=== PATIENT | female | born 1950 | race Caucasian/White ===

== ENCOUNTER 2020-05-07 12:21 | Outpatient (CLI) | payer MEDICARE, SELFPAY ==
--- NOTE | ~2020-05-07 | DEXA_ITS ---
BMD(1) Young-Adult(2) Age-Matched(3) Region (g/cm2) T-score Z-score WHO Classification L1 0.990 -1.2 1.7 Osteopenia L2 1.095 -0.9 1.9 Normal L3 1.092 -1.0 1.9 Normal L4 1.099 -0.9 1.9 Normal L1-L4 1.074 -1.0 1.9 Normal Trend: L1-L4 Change vs Change vs Measured Age BMD(1) Baseline Previous Date (years) (g/cm2) (%) (%) 05/07/2020 [age] 1.074 baseline - 1 - Statistically 68% of repeat scans fall within 1SD (+- 0.010 g/cm2 for AP Spine L1-L4) 2 - [place] (Combined NHANES (ages 20-30) / GET IT Mobile (ages 20-40)) AP Spine Reference Population (v112) 3 - Matched for Age, Weight (females 25-100 kg), Ethnic 11 - World Health Organization - Definition of Osteoporosis and Osteopenia for Women: Normal = T-score at or above -1.0 SD; Osteopenia = T-score between -1.0 and -2.5 SD; Osteoporosis = T-score at or below -2.5 SD; (WHO definitions only apply when a young healthy Women reference database is used to determine T-scores.) Printed: 05/07/2020 12:59:51 PM (13.60)76:3.00:50.00:12.0 0.00:10.44 0.60x1.05 25.0:%Fat=45.9% 0.00:0.00 0.00:0.00 Filename: [id number].dfx Scan Mode: Standard;OneScan 37.0 [employer] [id number] BMD(1) Young-Adult(2,7) Age-Matched(3) Region (g/cm2) T-score Z-score WHO Classification Neck Left 0.719 -2.3 0.1 Osteopenia Right 0.727 -2.2 0.2 Osteopenia Mean 0.723 -2.3 0.2 Osteopenia Difference 0.008 0.1 0.1 - Total Left 0.776 -1.8 0.4 Osteopenia Right 0.797 -1.7 0.6 Osteopenia Mean 0.786 -1.8 0.5 Osteopenia Difference 0.021 0.2 0.2 - Hip Lapoint Length Comparison (mm) (Right = 101.9 mm) (Mean = 101.1 mm) (Left = 104.7 mm) Trend: Total Mean Change vs Change vs Measured Age BMD(1) Baseline Previous Date (years) (g/cm2) (%) (%) 05/07/2020 69.9 0.786 baseline - 1 - Statistically 68% of repeat scans fall within 1SD (+- 0.010 g/cm2 for DualFemur Total) 2 - [place] (Combined NHANES (ages 20-30) / [employer] Mobile (ages 20-40)) Femur Reference Population (v112) 3 - Matched for Age, Weight (females 25-100 kg), Ethnic 7 - DualFemur Total T-score difference is 0.2. Asymmetry is None. 11 - World Health Organization - Definition of Osteoporosis and Osteopenia for Women: Normal = T-score at or above -1.0 SD; Osteopenia = T-score between -1.0 and -2.5 SD; Osteoporosis = T-score at or below -2.5 SD; (WHO definitions only apply when a young healthy Women reference database is used to determine T-scores.) Printed: 05/07/2020 12:59:52 PM (13.60); Filename: [id number].dfx; Right Femur; 20.5:%Fat=39.0%; Neck Angle (deg)= 63; Scan Mode: Standard 37.0 uGy; Left Femur; 20.0:%Fat=38.8%; Neck Angle (deg)= 68; Measured thickness not within mode range; Scan Mode: Thin 9.0 uGy [facility] [id number] Dear Erwin Beltran, Your patient Polly Merchant completed a BMD test on 05/07/2020 using the [facility] DXA System (analysis version: 13.60) manufactured by [employer]. The following summarizes the results of our evaluation. PATIENT BIOGRAPHICAL: Name: Polly Merchant Date: 1950 Height: 61.0 in. Gender: Female
== END 2020-05-07 12:22 | disposition home or self-care (01) ==
LOC: CHSIMG 12:24
PROVIDERS: PCP Family Medicine; Visit Provider Family Medicine
DX: Z78.0 Asymptomatic menopausal state (principal)
CPT/HCPCS: 77080

== ENCOUNTER 2021-01-24 12:44 | Outpatient (CLI) | payer MEDICARE, SELFPAY ==
--- NOTE | ~2021-01-24 | MM_ITS ---
EXAMINATION: MM screening [facility] HISTORY: Screening TECHNIQUE: Craniocaudal and mediolateral oblique 3-D tomosynthesis images were obtained and synthetic 2-D images were generated. CAD analysis was submitted and interpreted. COMPARISON: Comparison to multiple prior studies sequentially, with oldest reviewed study dated 07/11. BREAST PARENCHYMAL COMPOSITION: There are scattered areas of fibroglandular density. FINDINGS: There is no evidence of suspicious mass, calcification, or architectural distortion to sugg est malignancy in either breast. There has been no suspicious interval change. IMPRESSION: 1. No mammographic evidence of malignancy. 2. Recommend routine screening mammography in one year. BI-RADS Category 1: Negative Reviewed, dictated and finalized at location A.
== END 2021-01-24 12:45 | disposition home or self-care (01) ==
LOC: CHSIMG 12:45
PROVIDERS: PCP Family Medicine; Visit Provider Family Medicine
DX: Z12.31 Encounter for screening mammogram for malignant neoplasm of breast (principal)
CPT/HCPCS: 77063; 77067

== ENCOUNTER 2021-02-28 14:36 | Outpatient (CLI) | payer MEDICARE, SELFPAY ==
--- NOTE | ~2021-02-28 | XR_ITS ---
XR foot RT min 3V DATE: 02/28/2021 15:10 INDICATION: Generalized foot pain for 2 years. Broke foot 20 years ago. TECHNIQUE: 3 views COMPARISON: None FINDINGS: There is mild plantar calcaneal enthesopathy and mild calcification of the distal Achilles tendon. No recent fracture or dislocation, periosteal reaction or bone destruction. IMPRESSION: Mild calcaneal enthesopathy, mild calcification of the distal Achilles tendon Reviewed, dictated and finalized at location A. IMPRESSION: Mild calcaneal enthesopathy, mild calcification of the distal Achil les tendon
== END 2021-02-28 14:37 | disposition home or self-care (01) ==
LOC: CHSIMG 14:39
PROVIDERS: PCP Family Medicine; Visit Provider Podiatrist
DX: M77.41 Metatarsalgia, right foot (principal)
CPT/HCPCS: 73630

== ENCOUNTER 2021-06-25 10:10 | Outpatient (CLI) | payer MEDICARE, SELFPAY ==
--- NOTE | ~2021-06-25 | MR_ITS ---
EXAMINATION: MR knee LT wo con DATE: 06/25/2021 15:36 INDICATION: Left knee pain. TECHNIQUE: Magnetic resonance imaging (MRI) of the left knee was performed without intravenous contra st. Sequences included axial PD-weighted FS FSE, coronal PD-weighted FSE and PD-weighted FS FSE, sagi ttal PD-weighted FSE, and sagittal T2-weighted FS FSE. COMPARISON: None. FINDINGS: Medial compartment: Medial meniscus is normal. There is shallow partial-thickness cartilage loss of femoral condyle invol ving the central articular surface. There is cartilage surface irregularity of tibial condyle. Lateral compartment: There is a complex tear involving the body and anterior horn of lateral meniscus. There is extensive shallow partial-thickness cartilage loss of femoral condyle and tibial condyle. There is mild subchon dral edema-like marrow signal intensity of femoral condyle at the central articular surface. Patellofemoral compartment: There is shallow partial-thickness cartilage loss of patellar median ridge with mild subchondral debby a-like marrow signal intensity. Trochlear cartilage is normal. Ligaments and tendons: The anterior and posterior cruciate ligaments are normal. Medial collateral ligament is intact. There are changes of prior sprain of fibular collateral ligament characterized by thickening and increased signal intensity proximally. There is mild patellar tendinopathy. Fluid: There is a moderate-sized knee joint effusion. There is trace fluid in a May's cyst. There is mild pes anserinus bursitis. There is mild prepatellar and superficial infrapatellar bursitis. IMPRESSION: 1. Moderate tricompartmental chondrosis. 2. Tear of lateral meniscus. 3. Moderate-sized knee joint effusion. Reviewed, dictated and finalized at location A.
== END 2021-06-25 10:11 | disposition home or self-care (01) ==
LOC: CHSIMG 10:11
PROVIDERS: PCP Family Medicine; Visit Provider Family Medicine
DX: M25.562 Pain in left knee (principal)
CPT/HCPCS: 73721

== ENCOUNTER 2021-06-27 15:43 | Outpatient (CLI) | payer MEDICARE, SELFPAY ==
--- NOTE | ~2021-06-27 | XR_ITS ---
EXAMINATION: XR thoracic spine 3V DATE: 06/27/2021 16:17 INDICATION: Right posterior thoracic pain. TECHNIQUE: 3 views of thoracic spine were obtained. COMPARISON: Thoracic spine radiographs 06/09/2019 FINDINGS: There is 19 degrees levoscoliosis of thoracolumbar spine. There is kyphosis of thoracic spi ne. There is mild chronic anterior wedging of T7, T8, and T9 vertebral bodies. There is severely decr eased disc height from T4-T5 through T9-T10. There is interbody fusion at T5-T6 and T6-T7. IMPRESSION: 1. Severe thoracic spondylosis, mildly worsened from 06/09/2019. 2. Thoracic kyphosis and thoracolumbar levoscoliosis. Reviewed, dictated and finalized at location A.
--- NOTE | ~2021-06-27 | XR_ITS ---
EXAMINATION: XR chest 2V 06/27/2021 16:17 INDICATION: Pleuritic chest pain PROCEDURE: 2 view chest COMPARISON: Comparison to multiple prior studies sequentially, with oldest reviewed study dated 10/25. FINDINGS: The lungs are clear. The cardiomediastinal silhouette is within normal limits. There are no pleural effusions. There is no pneumothorax suspected. There is scoliosis. No acute osseous abno rmality. IMPRESSION: 1: NO ACUTE CARDIOPULMONARY DISEASE. Reviewed, dictated and finalized at location B.
== END 2021-06-27 15:44 | disposition home or self-care (01) ==
LOC: CHSIMG 15:52
PROVIDERS: PCP Family Medicine; Visit Provider Family Medicine
DX: R07.81 Pleurodynia (principal)
CPT/HCPCS: 71046; 72072

== ENCOUNTER 2022-01-30 08:32 | Outpatient (CLI) | payer MEDICARE, SELFPAY ==
--- NOTE | ~2022-01-30 | MM_ITS ---
EXAMINATION: MM screening [facility] BI w kojo HISTORY: Screening mammogram TECHNIQUE: Craniocaudal and mediolateral oblique 3-D tomosynthesis images were obtained and synthetic 2-D images were generated. CAD analysis was submitted and interpreted. COMPARISON: 01/24/2021, 08/14/2019, 08/12/2018 bilateral screening mammogram examinations BREAST PARENCHYMAL COMPOSITION: The breasts are almost entirely fatty. FINDINGS: There is no evidence of suspicious mass, calcification, or architectural distortion to sugg est malignancy in either breast. There has been no suspicious interval change. IMPRESSION: 1. No mammographic evidence of malignancy. 2. Recommend routine screening mammography in one year. BI-RADS Category 1: Negative Reviewed, dictated and finalized at location A.
== END 2022-01-30 08:33 | disposition home or self-care (01) ==
LOC: CHSIMG 08:38
PROVIDERS: PCP Family Medicine; Visit Provider Family Medicine
DX: Z12.31 Encounter for screening mammogram for malignant neoplasm of breast (principal)
CPT/HCPCS: 77063; 77067

== ENCOUNTER 2022-08-17 10:48 | Outpatient (CLI) | payer MEDICARE, SELFPAY ==
--- NOTE | ~2022-08-17 | XR_ITS ---
XR chest 2V 08/17/2022 11:05 Indication: Bronchitis for 2 weeks Procedure: PA and lateral views of the chest Comparison: 06/27/2021 Findings: Heart size is normal. There is left basilar atelectasis. No focal pneumonia, edema, pleural effusion or pneumothorax. No acute osseous abnormality. Impression: 1: Left basilar atelectasis. Reviewed, dictated and finalized at location A. STRATION REP Impression: 1: Left basilar atelectasis.
== END 2022-08-17 10:49 | disposition home or self-care (01) ==
LOC: CHSIMG 10:50
PROVIDERS: PCP Family Medicine; Visit Provider Family Medicine
DX: J20.9 Acute bronchitis, unspecified (principal)
CPT/HCPCS: 71046

== ENCOUNTER 2022-10-26 10:23 | Outpatient (CLI) | payer MEDICARE, SELFPAY ==
--- NOTE | ~2022-10-26 | DEXA_ITS ---
Bone Density Report Name: NNAMDI DUMONT Age: 72 Sex: Female Ethnicity: White Date of : 1950 Indication: postmenopausal; screening for osteoporosis; height loss; hysterectomy; Referring Provider: Devin*Erwin Marlow Study: Bone densitometry was performed. Exam Date: October 26, 2022 Accession number: [id number] Bone Density: Region BMD T-score Z-score Classification AP Spine(L1-L4) 0.867 -1.6 0.6 Osteopenia Femoral Neck (Left) 0.584 -2.4 -0.5 Osteopenia Total Hip (Left) 0.677 -2.2 -0.6 Osteopenia Femoral Neck (Right) 0.579 -2.4 -0.6 Osteopenia Total Hip (Right) 0.706 -1.9 -0.4 Osteopenia Femoral Neck Mean 0.581 -2.4 -0.5 Osteopenia Total Hip Mean 0.692 -2.1 -0.5 Osteopenia World Health Organization criteria for BMD impression classify patients as: Normal (T-score at or above -1.0), Osteopenia (T-score between -1.0 and -2.5), or Osteoporosis (T-score at or below -2.5). 10-year Fracture Risk(1): Major Osteoporotic Fracture 13% Hip Fracture 3.2% Reported Risk Factors: [place] (), Neck BMD=0.579, BMI=32.1 (1) FRAX(R) Version 3.08. Fracture probability calculated for an untreated patient. Fracture probability may be lower if the patient has received treatment. Clinical Information Provided by Patient: Has used the following medications: Vitamin D Has the following medical conditions: Hysterectomy Patient maximum height was 62 Menopause Age: 46 Drinks caffeinated beverages Onset of menses at age 14 Number of children 3 Impression: The patient has low bone mass, based on the Left Femoral Neck T-score. Discussion: BONE DENSITY IS LOW AT ONE OR MORE SKELETAL SITES. This patient's lowest T-score is low at one or more skeletal sites. It meets the World Health Organization's (WHO) criteria for ?low bone mass? (T-score between -1.0 and -2.5). The patient's 10-year risk of fracture as calculated by FRAX is less than the threshold where pharmacological therapy is recommended by the National Osteoporosis Foundation (NOF). However, all treatment decisions require clinical judgment and consideration of individual patient factors, including patient preferences, comorbidities, previous drug use, risk factors not captured in the FRAX model (e.g., frailty, falls, vitamin D deficiency, increased bone turnover, interval significant decline in bone density) and possible under or overestimation of fracture risk by FRAX. The patient should follow a healthful lifestyle (good nutrition with adequate calcium and vitamin D, and appropriate weight-bearing exercise). Follow-Up: Consider repeating this study in 2 to 3 years to reassess this patient's status, or sooner if there is some new clinical indication. Reported by: Dr. Brandon Padilla on 10/26/2022 10:47:00 AM.
== END 2022-10-26 10:24 | disposition home or self-care (01) ==
LOC: CHSIMG 10:25
PROVIDERS: PCP Family Medicine; Visit Provider Family Medicine
DX: Z78.0 Asymptomatic menopausal state (principal); M85.89 Other specified disorders of bone density and structure, multiple sites
CPT/HCPCS: 77080

== ENCOUNTER 2023-01-06 08:41 | Emergency (ER) | payer MEDICARE, SELFPAY ==
[2023-01-06] VITALS (16 sets, daily range): BP systolic 158–181; BP diastolic 68–90; PULSE 68–83; RESP 13–22; TEMP 36.8–36.9; O2SAT 93–97
--- NOTE | ~2023-01-06 | CT_ITS ---
EXAMINATION: CTA brain carotid DATE: 01/06/2023 11:02 INDICATION: Left arm numbness, headache TECHNIQUE: Computed tomographic angiography (CTA) of the head was performed without and with 100 mL O mnipaque-350 intravenous contrast. CTA of the neck was performed with intravenous contrast. The dose- length product was 1490.09 mGy-cm. Maximum intensity projection and volume rendered 3D-reconstruction s were created by the technologist on a separate workstation. Automated exposure control and iterativ e reconstruction technique were employed. COMPARISON: 02/06/2019 FINDINGS: HEAD CTA: There is no acute intraparenchymal hemorrhage. No evidence of mass lesion. No evidence of a cute infarction. There is mild periventricular and subcortical hypodensity probably related to small vessel ischemic disease. There is mild prominence of the sulci and ventricles related to cerebral atr ophy. Intracranial calcified cerebral atherosclerosis is noted. There are no extra-axial collections. There is no mass effect or midline shift. The orbits and soft tissues are unremarkable. The visualiz ed sinuses and mastoid air cells are well aerated. There is no significant stenosis of the basilar artery or posterior cerebral arteries. There is no si gnificant stenosis of the intracranial internal carotid arteries or the anterior or middle cerebral a rteries. The anterior communicating artery and posterior communicating arteries are normal. There is no aneurysm. NECK CTA: The thyroid gland is unremarkable. The submandibular and parotid glands are symmetric. Ther e is no lymphadenopathy. There are no masses identified. The airway is unremarkable. There is mild ce rvical spondylosis.. The superior mediastinum is unremarkable. There is 0% stenosis of the proximal right internal carotid artery relative to normal distal artery l umen diameter (NASCET criteria). There is 0% stenosis of the proximal left internal carotid artery re lative to normal distal artery lumen diameter. IMPRESSION: 1. No acute intracranial abnormality. Normal head CTA. 2. 0% stenosis of the proximal right internal carotid artery relative to normal distal artery lumen d iameter (NASCET criteria). 3. 0% stenosis of the proximal left internal carotid artery relative to normal distal artery lumen di ameter. Reviewed, dictated and finalized at location A. IMPRESSION: 1. No acute intracranial abnormality. Normal head CTA. 2. 0% stenosis of the proximal right internal carotid artery relative to normal distal artery lumen diameter (NASCET criteria). 3. 0% stenosis of the proximal left internal carotid artery relative to normal distal artery lumen diameter.
--- NOTE | ~2023-01-06 | XR_ITS ---
EXAMINATION: XR chest 2V DATE: 01/06/2023 11:03 INDICATION: Cough TECHNIQUE: PA and lateral views of the chest are obtained. COMPARISON: 08/17/2022 FINDINGS: The lungs are free of acute opacities. No pleural effusion or pneumothorax. The cardiomedia stinal silhouette is normal. There is moderate thoracic spondylosis. IMPRESSION: 1. No acute cardiopulmonary abnormality. Reviewed, dictated and finalized at location A.
--- NOTE | 2023-01-06 09:07 | ECG_ITS ---
Measurements Intervals [place] Rate: 69 P: 48 NC: 174 QRS: 30 QRSD: 87 T: 14 QT: 377 QTc: 405 Interpretive Statements SINUS RHYTHM EARLY PRECORDIAL R/S TRANSITION NONSPECIFIC T-WAVE ABNORMALITY- ANTERIOR LEADS BORDERLINE ECG NO PREVIOUS ECG AVAILABLE FOR COMPARISON Electronically Signed On 01-08-2023 6:48:13 CDT by Anil Morgan D.O.
[2023-01-06 09:41] LABS: Basophils Absolute Auto 0.04 K/mm3 (0.00-0.10); Basophils Percent Auto 0.6 % (0.0-1.0); Eosinophils Absolute Auto 0.13 K/mm3 (0.02-0.50); Eosinophils Percent Auto 1.8 % (1.0-6.0); Hematocrit 40.2 % (35.0-42.0); Hemoglobin 13.1 g/dL (11.7-13.8); Immature Granulocyte Absolute 0.01 K/mm3 (0.00-0.00); Immature Granulocyte Percent A 0.1 % (0.0-0.0); Lymphocytes Absolute Auto 1.89 K/mm3 (1.10-4.50); Mean Corpuscular HGB Conc 32.6 g/dL (32.0-36.0); Mean Corpuscular Hemoglobin 29.3 pg (27.0-31.0); Mean Corpuscular Volume 89.9 fL (78.0-102.0); Mean Platelet Volume 10.4 fl (9.2-11.8); Monocytes Absolute Auto 0.53 K/mm3 (0.10-0.90); Monocytes Percent Auto 7.3 % (2.0-11.0); Neutrophils Absolute Auto 4.7 K/mm3 (1.7-7.2); Neutrophils Percent Auto 64.2 % (50.0-70.0); Platelet Count Result 244 K/mm3 (150-420); Red Blood Count 4.47 M/mm3 (4.20-5.40); Red Cell Distribution Width 12.6 % (11.6-14.4); White Blood Count 7.3 K/mm3 (4.8-10.8)
--- NOTE | 2023-01-06 09:41 | ED.GENADULT ---
HPI - General Adult General Chief complaint: Extremity Injury, Upper Stated complaint: altered Time Seen by Provider: 01/06/23 09:07 History of Present Illness HPI narrative: 72yo woman in a state of good health presents withconcerns for a painful numbness, pins and needles sensation, extending from the left elbow downward, onset 2 nights ago, that lasted about a day and then resolved. No other numbness such as in the face or leg. No weakness. No difficulty with balance, speech, or vision. She did notice her blood pressure is now running higher. No other pains in the body. Daughter is worried about a heart attack. Pt denies shortness of breath, nausea, sweatiness. She does feel noticeably more tired than usual. No cough, fever, congestion, diarrhea, joint swelling, rash, or dysuria. Related Data Home Medications Medication Instructions Recorded Confirmed atorvastatin 10 mg tablet 10 mg PO DAILY 11/19/19 01/06/23 omeprazole 20 mg capsule,delayed 20 mg PO DAILY 11/19/19 01/06/23 release Allergies Allergy/AdvReac Type Severity Reaction Status Date / Time fentanyl Allergy Intermediate hot flashes Verified 01/06/23 09:04 Penicillins Allergy Intermediate Rash Verified 01/06/23 09:04 Review of Systems Review of Systems: All systems reviewed & are unremarkable except as noted in HPI and below Constitutional: Constitutional: Reports fatigue Cardiovascular: Cardiovascular: Denies chest pain Respiratory: Respiratory: Denies dyspnea Gastrointestinal: Gastrointestinal: Denies nausea PMFSH Social History Social History Smoking status: Never smoker Alcohol intake: never Exam Const: General: healthy appearing and no acute distress Nutritional Appearance: well nourished Orientation/consciousness: patient oriented x3 HENMT: Head: normal to inspection Mouth: Yes moist mucous membranes Eyes: Conjunctivae: conjunctivae normal EOM: EOMs intact bilaterally Neck: Other: supple Resp: Effort & Inspection: normal respiratory effort Cardio: Rate: regular rate Rhythm: regular rhythm Skin: General skin exam: normal color, no jaundice and no pallor Neuro: General: patient oriented x3, moves all extremities, no focal motor deficits and CN's II-XI intact bilaterally Other: intact pinprick sensation across both arms and forearms Extrem: General: normal to inspection Course Vital Signs Vital signs: Vital Signs Temperature 36.9 C 01/06/23 08:43 Pulse Rate 73 01/06/23 08:43 Respiratory Rate 18 01/06/23 08:43 Blood Pressure 168/74 H 01/06/23 08:43 Pulse Oximetry 97 01/06/23 08:43 Oxygen Delivery Room Air 01/06/23 08:43 Temperature 36.9 C 01/06/23 08:48 Pulse Rate 68 01/06/23 10:05 Respiratory Rate 16 01/06/23 10:05 Blood Pressure 181/79 H 01/06/23 10:03 Pulse Oximetry 95 01/06/23 10:05 Oxygen Delivery Room Air 01/06/23 08:43 Medical Decision Making MDM Narrative Medical decision making narrative: Temporary unilateral numbness, not in any one peripheral nerve distribution DDx consider TIA, pressure neuropathy, radiculopathy (but no neck pain), coronary syndrome (but no chest symptoms), and muscle strain. Needs CT Head, CT angio head and neck, CXR, and cardiac labs. Differential Diagnosis Differential Diagnosis: above Medical Records Medical records reviewed: Yes I reviewed the external patient's medical records. Vital Signs Vital Signs: Vital Signs Temperature 36.9 C 01/06/23 08:43 Pulse Rate 73 01/06/23 08:43 Respiratory Rate 18 01/06/23 08:43 Blood Pressure 168/74 H 01/06/23 08:43 Pulse Oximetry 97 01/06/23 08:43 Oxygen Delivery Room Air 01/06/23 08:43 Temperature 36.9 C 01/06/23 08:48 Pulse Rate 68 01/06/23 10:05 Respiratory Rate 16 01/06/23 10:05 Blood Pressure 181/79 H 01/06/23 10:03 Pulse Oximetry 95 01/06/23 10:05 Oxygen Delivery
[2023-01-06 09:58] LABS: Alanine Aminotransferase 19 U/L (14-59); Albumin Level 3.6 g/dL (3.4-5.0); Alkaline Phosphatase 122 U/L (46-116); Anion Gap 9 mmol/L (8-16); Aspartate Amino Transferase 23 U/L (15-37); Bilirubin,Total 0.6 mg/dL (0.00-1.00); Blood Urea Nitrogen 20 mg/dL (7-18); Carbon Dioxide 30 mmol/L (21-32); Chloride 104 mmol/L (98-108); Estimated CRCL calculation 57 ml/min; Estimated Glomerular Filt Rate > 60; Glucose 103 mg/dL (70-99); Osmolality Calculated 298 mOsm/kg (285-295); Potassium 3.8 mmol/L (3.5-5.1); Sodium 143 mmol/L (136-145); Total Protein 7.8 g/dL (6.4-8.2); Troponin I 14.2 ng/L (0.00-60.4)
[2023-01-06 10:11] LABS: Appearance Urine Clear (Clear); Bilirubin Urine Negative (Negative); Blood Urine Negative (Negative); Color Urine Light Yellow (Yellow); Glucose Urine UA Negative (Negative); Ketones Urine Negative (Negative); Leukocyte Esterase Ur Negative LEU/UL (Negative); Nitrate Urine Negative (Negative); Protein Urine Negative (Negative); Urobilinogen Urine 0.2 mg/dL (0.2-1.0)
[2023-01-06 10:14] LABS: Add Urine Microscopic? NO
[2023-01-06] MEDS: SODIUM CHLORIDE 0.9% IV 1,000 ML 999 ML IV CONT (10:16)
[2023-01-06] MEDS: KETOROLAC 30 MG/ML VIAL (*BKC) IV PUSH (10:17)
[2023-01-06] MEDS: ACETAMINOPHEN 500 MG TABLET 1000 MG PO (10:18)
[2023-01-06] MEDS: methocarbamoL 500 MG TABLET 1000 MG PO (10:58)
== END 2023-01-06 11:59 | disposition home or self-care (01) ==
PROVIDERS: Emergency Provider Emergency Medicine; PCP Family Medicine
DX: M79.602 Pain in left arm (principal)
CPT/HCPCS: 36415; 70496; 70498; 71046; 80053; 81003; 84484; 85025; 93005; 96361; 96374; 99284; A9270; J1885; J7030; Q9967

== ENCOUNTER 2023-02-01 11:35 | Outpatient (CLI) | payer MEDICARE, SELFPAY ==
--- NOTE | ~2023-02-01 | MM_ITS ---
EXAMINATION: MM screening [facility] BI w kojo HISTORY: Screening mammogram TECHNIQUE: Craniocaudal and mediolateral oblique 3-D tomosynthesis images were obtained and synthetic 2-D images were generated. CAD analysis was submitted and interpreted. COMPARISON: 01/30/2022, 01/24/2021, 08/14/2019 BREAST PARENCHYMAL COMPOSITION: There are scattered areas of fibroglandular density. FINDINGS: No suspicious mass, calcification, or architectural distortion are identified in either william ast to suggest malignancy. There has been no suspicious interval change. IMPRESSION: 1. No mammographic evidence of malignancy. 2. Recommend routine screening mammography in one year. BI-RADS Category 1: Negative Reviewed, dictated and finalized at location A.
== END 2023-02-01 11:36 | disposition home or self-care (01) ==
LOC: CHSIMG 11:36
PROVIDERS: PCP Family Medicine; Visit Provider Family Medicine
DX: Z12.31 Encounter for screening mammogram for malignant neoplasm of breast (principal)
CPT/HCPCS: 77063; 77067

== ENCOUNTER 2023-07-02 05:07 | Emergency (ER) | payer MEDICARE, SELFPAY ==
[2023-07-02 05:10] VITALS: BP 174/82; PULSE 84; RESP 16; TEMP 36.7; O2SAT 98
--- NOTE | 2023-07-02 05:30 | ED.GENADULT ---
HPI - General Adult General Chief complaint: Unspecified Stated complaint: Left Arm Numbness Time Seen by Provider: 07/02/23 05:15 History of Present Illness HPI narrative: Renea presented to the ED with some numbness in her left arm. It started after doing some yard work yesterday but resolved. However, it woke her up from sleep today but resolved by the time she came to the ED. It happened back in December when she had a CVA workup done that was unremarkable at that time. She describes it as numbness to the outside of her left arm and before coming to the ED she had trouble extending her left wrist. It did not hurt per say but just felt numb. She did work in the yard but she regularly does this. No falls or trauma. She denies any slurred speech, weakness, and facial droop as well as chest pain, dyspnea, nausea and lightehadedness. Related Data Home Medications Medication Instructions Recorded Confirmed atorvastatin 10 mg tablet 10 mg PO DAILY 11/19/19 07/02/23 omeprazole 20 mg capsule,delayed 20 mg PO DAILY 11/19/19 07/02/23 release Allergies Allergy/AdvReac Type Severity Reaction Status Date / Time fentanyl Allergy Intermediate hot flashes Verified 07/02/23 05:10 Penicillins Allergy Intermediate Rash Verified 07/02/23 05:10 Review of Systems Review of Systems: All systems reviewed & are unremarkable except as noted in HPI and below [facility] Social History Social History Smoking status: Never smoker Alcohol intake: never Exam Const: General: cooperative, healthy appearing, comfortable and no acute distress Nutritional Appearance: average body habitus HENMT: Head: normal to inspection, normocephalic and atraumatic Eyes: General: appearance normal, both eyes and all related structures Alignment and Position: alignment normal Periorbital: periorbital findings normal Neck: Neck: normal visual inspection and full ROM Other: Was mildly TTP just lateral to the midline of the cervical spine. Did have some pain with Spurling maneuver but it did not travel all the way down the arm. Chest: Chest palpation & inspection: normal inspection of the chest Resp: Effort & Inspection: normal respiratory effort and able to speak in complete sentences Cardio: Rate: regular rate Skin: General skin exam: normal color and no rashes or lesions noted Neuro: General: oriented to person, oriented to place, oriented to time, gait normal, moves all extremities and CN's II-XI intact bilaterally Cognition (Neuro): normal cognition Speech: normal speech Gait exam (Neuro): Normal gait present Motor exam (neuro): 5/5 motor strength present throughout and No tremor noted Other: Numbness on the posterior medial side of the left hand, numbness on the medial posterior forearm and lateral left arm. 5/5 strenth throughout the upper extremities. Course Vital Signs Vital signs: Vital Signs Temperature 98.1 F 07/02/23 05:10 Pulse Rate 84 07/02/23 05:10 Respiratory Rate 16 07/02/23 05:10 Blood Pressure 174/82 H 07/02/23 05:10 Pulse Oximetry 98 07/02/23 05:10 Oxygen Delivery Room Air 07/02/23 05:10 Temperature 98.1 F 07/02/23 05:10 Pulse Rate 84 07/02/23 05:10 Respiratory Rate 16 07/02/23 05:10 Blood Pressure 174/82 H 07/02/23 05:10 Pulse Oximetry 98 07/02/23 05:10 Oxygen Delivery Room Air 07/02/23 05:10 Medical Decision Making Differential Diagnosis Differential Diagnosis: -Radial nerve in jury vs cervical radiculopathy vs musculoskeletal strain vs TIA vs other. As numbness follows the radial nerve distribution and she reports wrist extension weakness earlier this is most likely. With minor neck pain and radiating numbness cervical radiculopathy could also be the case. TIA/CVA is unlikely as there is no weakness, facial droop, slurred speech and she had a normal head/neck CTA months ago. Vital Signs Vital Signs: Vital Signs
[2023-07-02 05:33] VITALS: BP 165/79
[2023-07-02 05:43] VITALS: BP 165/79; PULSE 76; RESP 16; TEMP 36.7; O2SAT 96
== END 2023-07-02 05:44 | disposition home or self-care (01) ==
PROVIDERS: Emergency Provider Family Medicine; PCP Family Medicine
DX: S54.22XA Injury of radial nerve at forearm level, left arm, initial encounter (principal); Z86.73 Personal history of transient ischemic attack (TIA), and cerebral infarction without residual deficits; X58.XXXA Exposure to other specified factors, initial encounter
CPT/HCPCS: 99283

== ENCOUNTER 2023-08-30 10:31 | Outpatient (CLI) | payer MEDICARE, SELFPAY ==
--- NOTE | ~2023-08-30 | XR_ITS ---
EXAM: XR thoracic spine 3V DATE: 08/30/2023 11:39 HISTORY: mid back pain X 2 WEEKS AFTER LIFTING SOMETHING HEAVY . COMPARISON: 06/27/2021. FINDINGS: Exaggerated thoracic kyphosis. Multilevel mild anterior wedge deformities in the thoracic spine, unchanged. Moderate thoracic scoliosis. Multilevel moderate-severe degenerative disc changes. No traumatic malalignment or fracture. Senescent changes in the lungs. IMPRESSION: No acute fracture or traumatic malalignment detected in the thoracic spine. Multilevel degenerative disc disease. Thoracic kyphosis and scoliosis. Reviewed, dictated and finalized at location K. NCIAL PLANNING ANALYST
== END 2023-08-30 10:32 | disposition home or self-care (01) ==
PROVIDERS: PCP Family Medicine; Visit Provider Family Medicine
DX: M54.9 Dorsalgia, unspecified (principal); M51.34 Other intervertebral disc degeneration, thoracic region
CPT/HCPCS: 72072

== ENCOUNTER 2023-09-05 12:02 | Outpatient (CLI) | payer MEDICARE, SELFPAY ==
--- NOTE | ~2023-09-05 | CT_ITS ---
EXAMINATION:CT diagnostic chest wo con DATE: 09/05/2023 12:47 INDICATION: Right chest pain. TECHNIQUE: Computed tomography (CT) of the chest was performed without intravenous contrast. Automate d exposure control and iterative reconstruction technique were employed. The dose-length product (DLP ) was 213.14 mGy-cm. COMPARISON: CT abdomen and pelvis 06/06/2019 FINDINGS: There is mild scarring at the lung apices. There is mild scarring in paraspinal right lower lobe. Calcified right lung nodules are consistent with old granulomatous disease. No pleural effusio n. The heart size is normal. There are coronary artery calcifications. No pericardial effusion. There is a small sliding hiatal hernia. There is a 5 mm stone in right kidney. There is severe thoracic sp ondylosis. IMPRESSION: 1. Small sliding hiatal hernia. Reviewed, dictated and finalized at location E. T ASSOCIATE
[2023-09-05 12:25] LABS: Basophils Absolute Auto 0.05 K/mm3 (0.00-0.10); Basophils Percent Auto 0.5 % (0.0-1.0); Eosinophils Percent Auto 0.9 % (1.0-6.0); Hematocrit 44.1 % (35.0-42.0); Hemoglobin 14.7 g/dL (11.7-13.8); Immature Granulocyte Absolute 0.04 K/mm3 (0.00-0.00); Immature Granulocyte Percent A 0.4 % (0.0-0.0); Lymphocytes Absolute Auto 1.83 K/mm3 (1.10-4.50); Lymphocytes Percent Auto 17.1 % (18.0-42.0); Mean Corpuscular HGB Conc 33.3 g/dL (32.0-36.0); Mean Corpuscular Hemoglobin 29.8 pg (27.0-31.0); Mean Corpuscular Volume 89.5 fL (78.0-102.0); Mean Platelet Volume 10.4 fl (9.2-11.8); Monocytes Absolute Auto 0.53 K/mm3 (0.10-0.90); Monocytes Percent Auto 4.9 % (2.0-11.0); Neutrophils Absolute Auto 8.2 K/mm3 (1.7-7.2); Neutrophils Percent Auto 76.2 % (50.0-70.0); Platelet Count Result 283 K/mm3 (150-420); Red Blood Count 4.93 M/mm3 (4.20-5.40); Red Cell Distribution Width 12.7 % (11.6-14.4); White Blood Count 10.7 K/mm3 (4.8-10.8)
[2023-09-05 13:05] LABS: Alanine Aminotransferase 37 U/L (14-59); Albumin Level 4.1 g/dL (3.4-5.0); Alkaline Phosphatase 140 U/L (46-116); Anion Gap 8 mmol/L (8-16); Aspartate Amino Transferase 19 U/L (15-37); Bilirubin,Total 0.7 mg/dL (0.00-1.00); Blood Urea Nitrogen 15 mg/dL (7-18); Calcium 9.7 mg/dL (8.5-10.1); Carbon Dioxide 31 mmol/L (21-32); Chloride 100 mmol/L (98-108); Estimated Glomerular Filt Rate > 60; Glucose 96 mg/dL (70-99); Osmolality Calculated 288 mOsm/kg (285-295); Potassium 3.8 mmol/L (3.5-5.1); Sodium 139 mmol/L (136-145); Total Protein 7.7 g/dL (6.4-8.2)
== END 2023-09-05 12:03 | disposition home or self-care (01) ==
PROVIDERS: PCP Family Medicine; Visit Provider Family Medicine
DX: K44.9 Diaphragmatic hernia without obstruction or gangrene (principal)
CPT/HCPCS: 36415; 71250; 80053; 85025

== ENCOUNTER 2023-09-06 08:01 | Outpatient (CLI) | payer MEDICARE, SELFPAY ==
--- NOTE | ~2023-09-06 | XR_ITS ---
EXAMINATION: XR ribs BI 3V w CXR 2V DATE: 09/06/2023 08:41 INDICATION: Right chest pain. TECHNIQUE: A frontal view of the chest and 2 views on 3 radiographs of the right ribs and 2 views on 3 radiographs of the left ribs were obtained. COMPARISON: Chest 2 views 01/06/2023 FINDINGS: There is no pneumonia, pleural effusion, or pneumothorax. The heart size is normal. There i s chronic anterior wedging of midthoracic vertebral bodies. IMPRESSION: 1. No acute cardiopulmonary disease. 2. No rib fracture. Reviewed, dictated and finalized at location A. T METAL WORKER HELPER
--- NOTE | ~2023-09-06 | US_ITS ---
US right upper quadrant INDICATION: Abdomen pain. PROCEDURE: Realtime right upper abdominal ultrasound. COMPARISON: No prior studies for comparison. FINDINGS: The pancreas is normal without focal mass or pancreatic ductal dilation. Fatty infiltratio n of the liver. There is normal directional flow in the portal vein. The gallbladder is normal without stones, gallbladder wall thickening or pericholecystic fluid. Comm on bile duct measures 5 mm. No sonographic Eng's sign. IMPRESSION: 1: Fatty infiltration of the liver. Reviewed, dictated and finalized at location L. ER ASSEMBLER
== END 2023-09-06 08:02 | disposition home or self-care (01) ==
PROVIDERS: PCP Family Medicine; Visit Provider Family Medicine
DX: R07.9 Chest pain, unspecified (principal); K76.0 Fatty (change of) liver, not elsewhere classified
CPT/HCPCS: 71046; 71110; 76705

== ENCOUNTER 2024-02-05 11:42 | Outpatient (CLI) | payer MEDICARE, SELFPAY ==
--- NOTE | ~2024-02-05 | MM_ITS ---
EXAMINATION: MM screening anastasiya BI w kojo HISTORY: Screening TECHNIQUE: Craniocaudal and mediolateral oblique 3-D tomosynthesis images were obtained and synthetic 2-D images were generated. CAD analysis was submitted and interpreted. COMPARISON: Comparison to multiple prior studies sequentially, with oldest reviewed study dated 07/12. BREAST PARENCHYMAL COMPOSITION: The breasts are almost entirely fatty. FINDINGS: There is no evidence of suspicious mass, calcification, or architectural distortion to sugg est malignancy in either breast. There has been no suspicious interval change. IMPRESSION: 1. No mammographic evidence of malignancy. 2. Recommend routine screening mammography in one year. BI-RADS Category 1: Negative Reviewed, dictated and finalized at location B.
== END 2024-02-05 11:43 | disposition home or self-care (01) ==
LOC: CHSIMG 11:43
PROVIDERS: PCP Family Medicine; Visit Provider Family Medicine
DX: Z12.31 Encounter for screening mammogram for malignant neoplasm of breast (principal)
CPT/HCPCS: 77063; 77067

== ENCOUNTER 2024-04-11 10:25 | Outpatient (CLI) | payer MEDICARE, SELFPAY ==
--- NOTE | ~2024-04-11 | US_ITS ---
EXAMINATION: US right upper quadrant DATE: 04/11/2024 10:55 INDICATION: Right upper quadrant abdominal pain. TECHNIQUE: Multiple grayscale and Doppler ultrasound images of the abdomen were obtained. COMPARISON: Ultrasound abdomen 09/06/2023 FINDINGS: The visualized portions of the head of the pancreas are normal. There is diffuse hepatic st eatosis. There is normal flow in main portal vein. The gallbladder is normal in size. No gallstones o r gallbladder wall thickening. There is no sonographic Eng's sign. The common duct is normal and m easures 6 mm. IMPRESSION: 1. Diffuse hepatic steatosis. Reviewed, dictated and finalized at location A.
== END 2024-04-11 10:26 | disposition home or self-care (01) ==
PROVIDERS: PCP Family Medicine; Visit Provider Family Medicine
DX: R10.11 Right upper quadrant pain (principal); K76.0 Fatty (change of) liver, not elsewhere classified
CPT/HCPCS: 76705

== ENCOUNTER 2024-04-14 10:53 | Outpatient (CLI) | payer MEDICARE, SELFPAY ==
--- NOTE | ~2024-04-14 | NM_ITS ---
EXAMINATION: NM hepatobiliary w pharm DATE: 04/14/2024 12:42 INDICATION: Right upper quadrant abdominal pain. COMPARISON: CT abdomen and pelvis 06/06/2019 TECHNIQUE: 6.2 mCi Tc-99m mebrofenin (Choletec) was administered intravenously. Scintigraphic images of the abdomen were obtained for one hour. Then, 1.5 mcg sincalide (Kinevac) IV was administered, an d imaging was continued for 30 minutes. FINDINGS: There is normal clearance of radiotracer from the blood pool. There is homogeneous tracer u ptake by the liver. Activity progresses to the bowel and gallbladder. Gallbladder ejection fraction (GBEF) was 77%. Note that most patients with gallbladder dysfunction have GBEF < 35%, which overlaps with the broad normal range of 10-90%. IMPRESSION: 1. Normal hepatobiliary scintigraphy. Reviewed, dictated and finalized at location A.
== END 2024-04-14 10:54 | disposition home or self-care (01) ==
PROVIDERS: PCP Family Medicine; Visit Provider Family Medicine
DX: R10.11 Right upper quadrant pain (principal)
CPT/HCPCS: 78227; A9537; J2805

== ENCOUNTER 2024-05-08 10:37 | Outpatient (CLI) | payer MEDICARE, SELFPAY ==
--- NOTE | ~2024-05-08 | XR_ITS ---
Clinical Indication: Chest pain PA and lateral views of the chest: Comparison: 09/06/2023 Findings: The lungs are clear, without evidence of focal consolidation or pleural effusion. Cardiome diastinal silhouette is within normal limits. Bones and soft tissues are unremarkable. Impression: Normal chest. Reviewed, dictated and finalized at location . Impression: Normal chest.
== END 2024-05-08 10:38 | disposition home or self-care (01) ==
LOC: CHSIMG 10:41
PROVIDERS: PCP Family Medicine; Visit Provider Family Medicine
DX: R07.9 Chest pain, unspecified (principal)
CPT/HCPCS: 71046

== ENCOUNTER 2024-05-22 14:12 | Outpatient (CLI) | payer MEDICARE, SELFPAY ==
--- NOTE | ~2024-05-22 | XR_ITS ---
XR ribs RT 2V w CXR 2V Ordering provider: Erwin Beltran, History: . Right upper CP radiates to R shoulder x9 months . Comparison: May 08, 2024 FINDINGS: BONES: No acute rib fracture. MEDIASTINUM: The cardiac silhouette is not enlarged. LUNGS: No infiltrates, effusions or pneumothorax. OTHER: No free air under the diaphragm. Levoscoliosis with degenerative changes of the spine. Increas ed kyphosis. Loss of height is seen in multiple vertebrae in the midthoracic area. IMPRESSION: 1. No right rib fracture (Note: subtle/nondisplaced rib fractures can be occult on plain films and i f there is continued clinical suspicion for rib fracture, recommend follow up CT chest). 2. No acute cardiopulmonary findings. Reviewed, dictated and finalized at location A. IMPRESSION: 1. No right rib fracture (Note: subtle/nondisplaced rib fractures can be occul t on plain films and if there is continued clinical suspicion for rib fracture, recommend follow up CT chest). 2. No acute cardiopulmonary findings.
== END 2024-05-22 14:13 | disposition home or self-care (01) ==
LOC: CHSIMG 14:15
PROVIDERS: PCP Family Medicine; Visit Provider Family Medicine
DX: R07.81 Pleurodynia (principal)
CPT/HCPCS: 71046; 71100

== ENCOUNTER 2024-05-27 10:36 | Outpatient (RCR) | payer MEDICARE, SELFPAY ==
--- NOTE | 2024-05-27 16:40 | PTOPEVAL1 ---
Assessment and note entered by Lynn Carson DPT Evaluation Information Assessment Status Evaluation Diagnosis R shoulder pain ICD-10 Condition Codes (PT) M25.511 Onset 05/22/24 Subjective Information Patient reports a few months ago she was standing on a step stool and was lifting an object away from her body and since then has felt pain at the R shoulder, pec and side region since. she reports that she feels like something has pulled. she reports she sleeps on her side and when she wakes up she has intense pain and has difficulty going back to sleep. she reports difficulty with sleeping, house hold chores, hanging up clothes, and lifting. she reports she has an MRI that shows RTC tendonitis. she returns to PCP in 4 weeks. Reported Pain Level Pain Score 5: Self Report Assessment PT Clinical Summary Mrs. Merchant is a 74 year old female who presents to PT with R shoulder and side pain. She demonstrates decreased R shoulder ROM, decreased R shoulder strength and tenderness to the R intercostals with palpation impairing her ability to sleep, do her laundry and complete house hold tasks. She would benefit from skilled PT to address impairments and return to OF. Plan of Care Interventions Electrical Stimulation,Gait Training,Hot Pack/Cold Pack,Manual Therapy,Mechanical Traction,Neuro Re- education,Patient/Caregiver Educati,Therapeutic Activities,Therapeutic Exercise PT Services Indicated Yes Treatment Frequency and 3x weekly for 12 visits Duration These treatments will address the objective and functional deficits as defined above. The patient will be advanced safely and appropriately in order for the patient to progress towards his/her prior level of function. Additional exercises will be introduced and as well as a comprehensive home exercise program upon discharge, if needed, ?to ensure carryover of functional gains achieved in the clinic. This treatment plan has been reviewed and agreement upon by the patient.
--- NOTE | 2024-06-18 11:32 | OPREHPOC ---
Outpatient Therapy Plan of Care This is a Multidisciplinary Plan of Care that may contain components documented by all disciplines (PT, OT, and ST.) PT Problem 1 PT Problem #1 Knowledge Deficit PT Goal 1 Goal / Goal Update Patient to demonstrate independence with HEP Target Visit 6 Progress Met PT Problem 2 PT Problem #2 Pain PT Goal 1 Goal / Goal Update 1. Patient to report highest pain at 4/10 2. Patient to report ability to sleep with no disturbance due to L shoulder pain Target Visit 12 Progress Not Met PT Problem 3 PT Problem #3 Impaired Range of Motion PT Goal 1 Goal / Goal Update Patient to demonstrate 150 deg of R shoulder flexion to return to hanging up laundry Target Visit 12 Progress Met PT Problem 4 PT Problem #4 Impaired Functional Mobil PT Goal 1 Goal / Goal Update 1. Patient to improve QuickDash by 20% 2. Patient to demonstrate ability to lift 10# from floor to shoulder height to return to house hold tasks at PLOF Target Visit 12 Progress Not Met
--- NOTE | 2024-06-18 11:32 | PTOPPROG ---
Assessment and note entered by Becki Lechuga, PT Evaluation Information Assessment Status Progress Diagnosis R shoulder pain ICD-10 Condition Codes (PT) M25.511 Onset 05/22/24 Subjective Information Polly Merchant reports she continues to get pain in the right shoulder and right upper back but it is greatly improved since she has been coming to PT. She notes she can now get to sleep without pain but occasionally if she wakes to use the restroom, she will have a little pain around the right shoulder blade. She also still notes pain in mid range when reaching overhead and she still has difficulty pushing or pulling open heavy doors. Assessment PT Clinical Summary Polly Merchant has completed 10 skilled PT visits for right shoulder pain. She is reporting improvements overall but still gets painful arc with flexion and pain with pushing and pulling heavy items. She objectively demonstrates improved right shoulder AROM. She continues to have palpable tension and pain in the middle and lower trapezius on the right, decreased right shoulder strength, impaired posture, and decreased functional abilities. She is progressing well toward her goals. She will continue to benefit from skilled PT to further address ongoing limitations. Plan of Care Interventions Electrical Stimulation,Hot Pack/Cold Pack,Manual Therapy,Patient/Caregiver Educati,Therapeutic Exercise PT Services Indicated Yes Treatment Frequency and Continue POC for 2 additional visits Duration These treatments will address the objective and functional deficits as defined above. The patient will be advanced safely and appropriately in order for the patient to progress towards his/her prior level of function. Additional exercises will be introduced and as well as a comprehensive home exercise program upon discharge, if needed, ?to ensure carryover of functional gains achieved in the clinic. This treatment plan has been reviewed and agreement upon by the patient.
--- NOTE | 2024-06-25 10:48 | PTOPDC ---
Assessment and note entered by Becki Lechuga, PT Evaluation Information Assessment Status Discharge Diagnosis R shoulder pain ICD-10 Condition Codes (PT) M25.511 Onset 05/22/24 Subjective Information Polly Merchant reports her right shoulder has improved quite a bit over the last few weeks. She notes she is able to sleep through the night now but does still have a little pain first thing in the morning. She feels she is not limited with daily activities and is comfortable with today being her last visit. Reported Pain Level Pain Score 0: Self Report Assessment PT Clinical Summary Polly Merchant has completed 12 skilled PT visits for right shoulder pain. She is reporting mostly resolved pain in the right shoulder and feels she is not limited with her usual daily activities. She objectively demonstrates improved right shoulder AROM, improved right shoulder strength, and improved posture. She does still have mild limitations with right shoulder abduction AROM with a painful arc. She was educated in home exercises to continue for ROM, strength, and posture. She will be discharged to an independent [facility]. Plan of Care PT Services Indicated No
== END 2024-06-25 11:03 | disposition home or self-care (01) ==
LOC: CHSPT 10:36
PROVIDERS: Visit Provider Family Medicine
DX: M25.511 Pain in right shoulder (principal)
CPT/HCPCS: 97014; 97110; 97140; 97150; 97161; 97750; G0283

== ENCOUNTER 2024-11-11 09:51 | Outpatient (CLI) | payer MEDICARE, SELFPAY | END 2024-11-11 09:52 | disposition home or self-care (01) | PROVIDERS: PCP Family Medicine; Visit Provider Family Medicine | DX: Z78.0 Asymptomatic menopausal state (principal); M85.89 Other specified disorders of bone density and structure, multiple sites; M81.0 Age-related osteoporosis without current pathological fracture | CPT/HCPCS: 77080 ==

== ENCOUNTER 2025-02-06 11:46 | Outpatient (CLI) | payer MEDICARE, SELFPAY ==
--- NOTE | ~2025-02-06 | MM_ITS ---
EXAMINATION: MM screening anastasiya BI w kojo HISTORY: Screening TECHNIQUE: Craniocaudal and mediolateral oblique 3-D tomosynthesis images were obtained and synthetic 2-D images were generated. CAD analysis was submitted and interpreted. COMPARISON: Comparison to multiple prior studies sequentially, with oldest reviewed study dated 11/2017. BREAST PARENCHYMAL COMPOSITION: Not Dense: The breasts are almost entirely fatty. FINDINGS: There is no evidence of suspicious mass, calcification, or architectural distortion to sugg est malignancy in either breast. There has been no suspicious interval change. IMPRESSION: 1. No mammographic evidence of malignancy. 2. Recommend routine screening mammography in one year. BI-RADS Category 1: Negative Reviewed, dictated and finalized at location A.
--- OUTSIDE RECORDS SUMMARY | 2025-02-06 11:49 | XMS_ITS | Referral Summary ---
Author Organization [facility] al Address [address] [place] [address] Care Team Providers Care Overlock Sleeve Setter Name Role Phone Erwin Beltran MD Primary Care Provider Allergies Active Allergy Reactions Criticality Noted Date Comments Fentanyl Dizziness,Palpitations Low 08/19/2015 Sweating, nausea, tachycardia Medications cholecalciferol (VITAMIN D-3) 5,000 unit tablet Take 1 tablet (5,000 Units total) by mouth daily Active amLODIPine (NORVASC) 5 mg tablet Take 1 tablet (5 mg total) by mouth daily 06/30/2024 Active atorvastatin (LIPITOR) 40 mg tablet Take 1 tablet (40 mg total) by mouth daily Active omeprazole (PriLOSEC) 20 mg capsule Take by mouth daily Active meloxicam (MOBIC) 15 mg tablet Take 1 tablet (15 mg total) by mouth daily 06/28/2024 Active cyanocobalamin, vitamin B-12, (VITAMIN B-12 ORAL) Take by mouth 250mg qd Active famotidine (PEPCID) 20 mg tablet Take 1 tablet (20 mg total) by mouth 2 (two) times a day Active Active Problems Problem Noted Date Diagnosed Date Primary hypertension 09/23/2024 Other hyperlipidemia 09/23/2024 GERD (gastroesophageal reflux disease) Social History Tobacco Use Types Packs/Day Years Used Date Smoking Tobacco: Never Tobacco Cessation:Counseling Given: Not Answered Comments Unknown Sex and Gender Information Value Date Recorded Sex Assigned at Not on file Legal Sex Female 6:33 AM DIRECTOR OF PLAYER PERSONNEL Gender Identity Not on file Sexual Orientation Not on file Last Filed Vital Signs Vital Sign Reading Time Taken Comments Blood Pressure 155/88 09/22/2024 8:38 AM DIRECTOR OF PLAYER PERSONNEL Pulse 73 09/22/2024 8:38 AM DIRECTOR OF PLAYER PERSONNEL Temperature 36.7 C (98.1 F) 09/22/2024 8:38 AM DIRECTOR OF PLAYER PERSONNEL Respiratory Rate - - Oxygen Saturation 97% 08/08/2015 5:45 PM DIRECTOR OF PLAYER PERSONNEL Inhaled Oxygen Concentration - - Weight 74.9 kg (165 lb 3.2 oz) 09/22/2024 8:38 A M DIRECTOR OF PLAYER PERSONNEL Height 160 cm (5' 3) 09/22/2024 8:38 AM DIRECTOR OF PLAYER PERSONNEL Body Mass Index 29.26 09/22/2024 8:38 AM DIRECTOR OF PLAYER PERSONNEL Plan of Treatment Not on file Procedures Procedure Name Priority Date/Time Associated Diagnosis Comments HEPATITIS C ANTIBODY Routine 09/22/2024 10:27 AM DIRECTOR OF PLAYER PERSONNEL Metabolic dysfunction-associa mariana steatotic liver disease (MASLD) from Last 3 Months or Most Recently Relevant to Health Maintenance Results * Hepatitis C antibody Blood (09/22/2024 10:27 AM DIRECTOR OF PLAYER PERSONNEL) Hep C Ab Nonreactive Nonreactive Comment:Antibodies to HCV no t detected. Does NOT exclude the possibility of recent exposure to HCV. Current interpretive data was last revised on 22 Blood 09/22/2024 10:2 7 AM DIRECTOR OF PLAYER PERSONNEL 09/22/2024 10:49 AM DIRECTOR OF PLAYER PERSONNEL Agueda Rosario MD LAB MICROBIOLOGY - GENE RAL ORDERABLES Final Result [facility] Department [place] [address] from Last 3 Months or Most Recently Relevant to Health Maintenance Insurance MEDICARE COMMERCIAL GENERIC MEDICARE COMMERCIAL GENERIC COMMERCIAL GENERIC MEDICARE Advance Directives For more information, please contact: [phone] Documents on File Type Date Recorded Patient Diagrammer Expl anation ADVANCE DIRECTIVE 06/16/2019 1:27 PM Care Teams Overlock Sleeve Setter Relationship Specialty Start Date End Date Erwin Beltran MD [address] [place] [id number] PCP - General Family Medicine 09/22/24
--- OUTSIDE RECORDS SUMMARY | 2025-02-06 11:49 | XMS_ITS | Clinical Summary ---
Author Organization [facility] al Address [address] [place] [address] Care Team Providers Care Lead Systems Architect Name Role Phone Erwin Beltran MD Primary Care Provider [phone] Allergies Active Allergy Reactions Criticality Noted Date [...] Other hyperlipidemia 09/23/2024 GERD (gastroesophageal reflux disease) Surgical History Surgery Date Site/Laterality Comments [place] TONSILLECTOMY PRIMARY/SEC ONDARY <AGE 13 Tonsillectomy - (Added by TW Conv) [place] TOTAL ABDOMINAL HYSTERECT W/WO RMVL TUBE OVARY Hysterectomy - (Added by TW Conv) KNEE SURGERY Knee Surgery - (Added by TW Conv) Medical History Medical History Date Comments Personal history of urinary calculi History of nephrolithiasis - (Added by TW Conv) Pure hypercholesterolemia Elevat ed cholesterol - (Added by TW Conv) Family History Medical History Relation Name Comments Heart disease Father Family history of cardiac disorder - (Added by TW Conv) Relation Name Status Comments Father Social History Tobacco Use Types Packs/Day Years Used Date Smoking Tobacco: Never Tobacco Cessation:Counseling Given: Not Answered Comments Unknown Sex and Gender Information Value Date Recorded Sex Assigned at Not on file Legal Sex Female 6:33 AM APRON OPERATOR Gender Identity Not on file Sexual Orientation Not on file Obstetrics History Last Filed Vital Signs Vital Sign Reading Time Taken Comments Blood Pressure 155/88 09/22/2024 8:38 AM APRON OPERATOR Pulse 73 09/22/2024 8:38 AM APRON OPERATOR Temperature 36.7 C (98.1 F) 09/22/2024 8:38 AM APRON OPERATOR Respiratory Rate - - Oxygen Saturation 97% 08/08/2015 5:45 PM APRON OPERATOR Inhaled Oxygen Concentration - - Weight 74.9 kg (165 lb 3.2 oz) 09/22/2024 8:38 A M APRON OPERATOR Height 160 cm (5' 3) 09/22/2024 8:38 AM APRON OPERATOR Body Mass Index 29.26 09/22/2024 8:38 AM APRON OPERATOR Plan of Treatment Health Maintenance Due Date Last Done Comments Breast Cancer Screening-Mammogram 1950 Colon Cancer Screening-Colonoscopy 1950 Depression Screening 1950 Fall Risk Assessment 1950 Osteoporosis Screening-Bone Density Scan 1950 DTaP/Tdap/Td Vaccine (1 - Tdap) 1962 Zoster Vaccine (2 of 3) 11/05/2015 09/10/2015, 01/21 Well Visit 65+ 2016 Influenza Vaccine (Season Ended) 2025 05/28/2019, 06/10/2018, 06/10/2017 Pneumococcal vaccine 65+ Completed 02/20/2019, 04/2018 Hepatitis B Screening Completed 09/22/2024 Hepatitis C Screening Completed 09/22/2024 Procedures Procedure Name Priority Date/Time Associated Diagnosis Comments HEPATITIS C ANTIBODY Routine 09/22/2024 10:27 AM APRON OPERATOR Metabolic dysfunction-associa mariana steatotic liver disease (MASLD) from Last 3 Months or Most Recently Relevant to Health Maintenance Results * Hepatitis C antibody Blood (09/22/2024 10:27 AM APRON OPERATOR) Hep C Ab Nonreactive Nonreactive Comment:Antibodies to HCV no t detected. Does NOT exclude the possibility of recent exposure to HCV. Current interpretive data was last revised on 22 Blood 09/22/2024 10:2 7 AM APRON OPERATOR 09/22/2024 10:49 AM APRON OPERATOR us Agueda Rosario MD LAB MICROBIOLOGY - GENE RAL ORDERABLES Final Result [facility] Department [place] [address] from Last 3 Months or Most Recently Relevant to Health Maintenance Insurance MEDICARE COMMERCIAL GENERIC MEDICARE COMMERCIAL GENERIC COMMERCIAL GENERIC MEDICARE Advance Directives For more information, please contact: [phone] Documents on File Type Date Recorded Patient Electronic Organ Mechanic Expl anation ADVANCE DIRECTIVE 06/16/2019 1:27 PM Care Teams Lead Systems Architect Relationship Specialty Start Date End Date Erwin Beltran MD [address] [place] [id number] PCP - General Family Medicine 09/22/24
--- OUTSIDE RECORDS SUMMARY | 2025-02-06 11:49 | XMS_ITS | CONTINUITY OF CARE DOCUMENT ---
Author Name dennis konstantinmello Address Unknown Organization [facility] Address [address] [place] [address] Phone [phone] Care Team Providers Care Supervisor Ride Assembly Name Role Phone Hernandez Brennan MD Unavailable [phone] MERLIN PIERCE, KEVIN F Unavailable KEVIN BOYER MD Unavailable PROBLEMS Condition Status Date Provider Notes Hypercholesterolemia active Hernandez Brennan MD Palpitations active Hernandez Brennan MD HTN borderline active Hernandez Brennan MD ENCOUNTERS Date Type Provider Location Encounter Diag nosis - In-person encounter Office Visit [facility] HTN borderline - In-person encounter Office Visit [facility] HypercholesterolemiaPalpitations VITAL SIGNS Date Observation Value Provider weight E&M 162 [lb_av] Hernandez Brennan MD blood pressure, diastolic 90 mm[Hg] Us bairon Brennan MD blood pressure, systolic 140 mm[Hg] Von Brennan MD pulse rate 67 /min Hernandez Brennan MD oxygen saturation, oximetry 99 % Hernandez Brennan MD respiratory rate E&M 16 /min Hernandez hugo MD blood pressure, diastolic 74 mm[Hg] Us bairon Brennan MD blood pressure, systolic 160 mm[Hg] Von Brennan MD pulse rate 70 /min Hernandez Brennan MD oxygen saturation, oximetry 99 % Hernandez Brennan MD respiratory rate E&M 16 /min Hernandez hugo MD weight E&M 162 [lb_av] Hernandez Brennan MD height E&M 62 [in_i] Hernandez Brennan MD ALLERGIES No Known Drug Allergies HISTORY OF MEDICATION USE No Known Medication SOCIAL HISTORY Date Observation Value Provider smoking status Never smoker Hernandez Brennan MD social history reviewed E&M reviewed - no changes required Hernandez Brennan MD social history reviewed E&M reviewed - no changes required Hernandez Brennan MD smoking status Never smoker Hernandez Brennan MD social history E&M 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 Smoking History: P atrosalba has never smoked. E Yolie History: Negative EtOH D oes not drink coffee or tea Hernandez Brennan MD FAMILY HISTORY Family Member Condition Paternal Grandmother Family History of C oronary Artery Disease: Paternal Grandfather Family History of C oronary Artery Disease: Father Family History of Co ronary Artery Disease: INSURANCE PROVIDERS Payer name Policy type / Coverage type [place] [employer] party ID [id number] PPO Other [id number] TREATMENT PLAN Date Name Performer :BP 140/90 Hernandez Brennan MD Hernandez Brennan MD :BP 140/90 Hernandez Brennan MD Hernandez Brennan MD New Patient Hernandez Brennan MD Date Name MAGNESIUM COMPREHENSIVE METABO LIC PANEL W/EGFR Holter Monitor 24 Hr Complete Echo
--- OUTSIDE RECORDS SUMMARY | 2025-02-06 11:49 | XMS_ITS | Clinical Summary ---
Author Organization [facility] Address [address] [place] [address] Care Team Providers Care Return To Factory Clerk Name Role Phone Erwin Beltran MD Primary Care Provider [phone] Source Comments [facility],non-owned Affiliates and Associated Physician Practices is amultiple site organization consisting of ambulatory clinics and hospital sitesin [place], [place], [place] and [place]. This disclosure is being madepursuant to the Care Everywhere program and may not contain all information available regarding this patient. Last updated 18.[facility] Medications * Be aware that medications may not be up to date on this document. Alwaysverify current medications with the patient. atorvastatin (Lipitor) 40 MG tablet Take 1 (one) tablet by mouth once daily 05/02/2021 Active omeprazole (PriLOSEC) 20 MG capsule Take 1 (one) capsule by mouth once daily 06/07/2022 Active Cholecalciferol (vitamin D3) 1.25 MG (96838 UT) capsule Take 1 (one) capsule by mouth every 7 days Active meloxicam (Mobic) 15 MG tablet TAKE 1 TABLET BY MOUTH EVERY DAY 90 tablet 1 04/24/2024 Active Active Problems No known active problems Encounters Date Type Department Care Team Description 01/02/2025 Refill [facility] [address] [place] [address], [address] [phone] Davonte Galvez MD Refill Request from Last 3 Months Social History Tobacco Use Types Packs/Day Years Used Date Smoking Tobacco: Never Assessed Comments Unknown Sex and Gender Information Value Date Recorded Sex Assigned at Not on file Legal Sex Female 9:32 AM CDT Gender Identity Not on file Sexual Orientation Not on file Last Filed Vital Signs Vital Sign Reading Time Taken Comments Blood Pressure - - Pulse - - Temperature - - Respiratory Rate - - Oxygen Saturation - - Inhaled Oxygen Concentration - - Weight 77.1 kg (170 lb) 10/05/2022 2:10 PM [employer] Height 157.5 cm (5' 2) 10/05/2022 2:10 PM [employer]ATIONAL [employer] IN[employer] Body Mass Index 31.09 10/05/2022 2:10 PM [employer]ATIONAL [employer] IN[employer] Plan of Treatment Health Maintenance Due Date Last Done Comments BONE DENSITY TESTING 1951 COLON MONITORING 1951 COLONOSCOPY - COLON CA SCREENING 1950 CT COLONOGRAPHY - COLON CA SCREENING 1950 FIT - COLON CA SCREENING 1951 FLEX SIG - COLON CA SCREENING 1950 MAMMOGRAM 1950 MEDICARE AWV 12 MONTHS 1950 HEPATITIS C SCREENING 05/21/1969 DTAP/TDAP/TD VACCINES (1 - Tdap) 1970 PNEUMOCOCCAL VACCINE 50+ (1 of 1 - PCV) 2001 ZOSTER VACCINE (1 of 2) 2001 COLOGUARD (AGES 45-75) - COL ON CA SCREENING 06/14/2023 06/14/2020 Colorectal Cancer Screening 06/14/2023 COVID-19 VACCINE ( - 2023-2 5 season) 2024 DEPRESSION SCREENING 09/10/2024 INFLUENZA VACCINE (Season Ended) 2025 Respiratory Syncytial Virus (RSV) Vaccine Pt: or over 60 yrs (1 - 1-dose 75+ series) 2026 HEPATITIS B VACCINE Aged Out No longe r eligible based on patient's age to complete this topic HIB VACCINE Aged Out No longer eligi ble based on patient's age to complete this topic HPV VACCINE Aged Out No longer eligi ble based on patient's age to complete this topic MENINGOCOCCAL (Group B) VACC INE SHARED DECISION-MAKING Aged Out No longer eligibl e based on patient's age to complete this topic MENINGOCOCCAL GROUPS A/C/Y/W VACCINE Aged Out No longer eligible b ased on patient's age to complete this topic Insurance MEDICARE MEDICARE SUPPLEMENT [employer] Care Teams Return To Factory Clerk Relationship Specialty Start Date End Date Erwin Beltran MD [address] [place] [phone] PCP - General Family Medicine 10/05/22
== END 2025-02-06 11:47 | disposition home or self-care (01) ==
PROVIDERS: PCP Family Medicine; Visit Provider Family Medicine
DX: Z12.31 Encounter for screening mammogram for malignant neoplasm of breast (principal)
CPT/HCPCS: 77063; 77067